=== PATIENT | male | born 1960 | race Caucasian/White ===

== ENCOUNTER → 2016-09-06 | Outpatient (REF) | payer BC ==
[2016-09-06 13:53] LABS: THYROXINE (T4) 5.5 UG/DL (4.5-12.0)
== END ==
LOC: M LAB REF 12:43
PROVIDERS: ATTEND Internal Medicine Medical Oncology
DX: C34.90 Malignant neoplasm of unspecified part of unspecified bronchus or lung (principal)

== ENCOUNTER → 2016-10-04 | Outpatient (REF) | payer SELFPAY ==
[2016-10-04 14:37] LABS: THYROXINE (T4) 4.3 UG/DL (4.5-12.0)
[2016-10-06 09:28] LABS: FREE T4 0.71 NG/DL (0.76-1.46)
== END ==
LOC: M LAB REF 13:30
PROVIDERS: ATTEND Internal Medicine Medical Oncology
DX: C34.90 Malignant neoplasm of unspecified part of unspecified bronchus or lung (principal); E03.9 Hypothyroidism, unspecified

== ENCOUNTER → 2016-11-01 | Outpatient (REF) | payer SELFPAY ==
[2016-11-01 15:25] LABS: THYROXINE (T4) 2.9 UG/DL (4.5-12.0)
== END ==
LOC: M LAB REF 14:55
PROVIDERS: ATTEND Internal Medicine Medical Oncology
DX: C34.90 Malignant neoplasm of unspecified part of unspecified bronchus or lung (principal)

== ENCOUNTER → 2016-12-06 | Outpatient (REF) | payer SELFPAY ==
[2016-12-06 16:31] LABS: FREE T4 0.48 NG/DL (0.76-1.46)
== END ==
LOC: M LAB REF 13:12
PROVIDERS: ATTEND Internal Medicine Medical Oncology
DX: C09.9 Malignant neoplasm of tonsil, unspecified (principal)

== ENCOUNTER → 2017-01-03 | Outpatient (REF) | payer SELFPAY ==
[2017-01-03 14:16] LABS: FREE T4 0.61 NG/DL (0.76-1.46)
== END ==
LOC: M LAB REF 12:29
PROVIDERS: ATTEND Internal Medicine Medical Oncology
DX: C09.9 Malignant neoplasm of tonsil, unspecified (principal)